=== PATIENT | female | born 1960 | race Caucasian/White ===

== ENCOUNTER 2017-06-29 01:09 | Emergency (ER) | payer SELFPAY ==
[~2017-06-29] VITALS: Ht 147.3 cm; Wt 88.0 kg
[~2017-06-29 01:09] MED LIST: AMLO5 PO; ATEN50TA PO; LISI-515 PO
[2017-06-29 01:31] VITALS: BP 173/79; PULSE 69; RESP 16; TEMP 97.8; O2SAT 99
--- NOTE | 2017-06-29 01:53 | PD ---
HPI Chief Complaint: Hypertension Time Seen by Provider: 01:36 Travel History International Travel<30 days: No Contact w/Intl Traveler<30days: No Traveled to known affect area: No History of Present Illness HPI The patient is a 56-year-old female who presents to the emergency department for dizziness and elevated blood pressure after drinking a Monster drink. The patient states she did work earlier today, took her lisinopril and metoprolol prior to work, and then drink a monster drink approximately 3 hours prior to arrival. 2 hours after drinking the monster drink the patient developed dizziness, feeling off balance, with nausea which has resolved. The patient still feels off balance and dizzy, but denies any headache, slurred speech, chest pain, shortness of breath, or focal deficits. The patient does have a history of hypertension, denies any known history of TIA or CVA. The patient denies any vertigo or room spinning sensation, simply feels "off balance ". The patient did have nausea which is currently resolved. She denies any focal weakness and denies any change in speech. Symptoms are moderate. PFSH Past Medical History Blood Disorders: No Heart Rhythm Problems: No Cancer: No Cardiac Catheterization: No Cardiovascular Problems: Yes (HTN) High Cholesterol: No Congestive Heart Failure: No Diabetes: Yes (Metformin) Patient Takes Glucophage: Yes Diminished Hearing: No Glaucoma: No Headaches: Yes Hepatitis: No Hiatal Hernia: No Hypertension: Yes Immune Disorder: No Implanted Vascular Access Dvce: No Musculoskeletal: No Psychiatric: No Reproductive: Yes ( FIBROIDS) Respiratory: No Immunizations Current: Yes Thyroid Disease: No ?: Not : 8 Para: 1 Miscarriage: 0 : 7 Past Surgical History Abdominal Surgery: Yes (APPY AT AGE 13) Appendectomy: Yes Section: Yes Coronary Artery Bypass Graft: No Gynecologic Surgery: Yes (, HYSTERECTOMY) Hysterectomy: Yes Other Surgery: Yes (ADDENOIDS REMOVED) Social History Alcohol Use: No Tobacco Use: Yes Substance Use: No Allergies-Medications (Allergen,Severity, Reaction): Coded Allergies: codeine (Unverified Allergy, Severe, SOB, 10/17/16) Reported Meds & Prescriptions Reported Meds & Active Scripts Active Norvasc (Amlodipine Besylate) 5 Mg Tab 5 Mg PO DAILY Reported Lisinopril 20 Mg Tab 20 Mg PO DAILY Atenolol 50 Mg Tab 50 Mg PO DAILY Review of Systems Except as stated in HPI: all other systems reviewed are Neg General / Constitutional: No: Fever Eyes: No: Visual changes HENT: Positive: Lightheadedness, No: Headaches, Vertigo Cardiovascular: No: Chest Pain or Discomfort Respiratory: No: Shortness of Breath Gastrointestinal: Positive: Nausea, No: Vomiting Musculoskeletal: No: Weakness Neurologic: Positive: Dizziness, No: Focal Abnormalities, Coordination Problem , Ataxia, Headache, Change in Mentation, Slurred Speech, Paresthesia, Sensory Disturbance Physical Exam Narrative GENERAL: Awake, alert, nontoxic-appearing 56-year-old female who appears her stated age and is in no acute respiratory distress. SKIN: Focused skin assessment warm/dry. HEAD: Atraumatic. Normocephalic. EYES: Pupils equal and round. Pupils are 3 mm bilateral and reactive. EOMs are intact. ENT: No nasal bleeding or discharge. Mucous membranes pink and moist. NECK: Trachea midline. No JVD. CARDIOVASCULAR: Regular rate and rhythm. No murmur appreciated. RESPIRATORY: No accessory muscle use. Clear to auscultation. Breath sounds equal bilaterally. MUSCULOSKELETAL: No obvious deformities. No clubbing. No cyanosis. No edema. NEUROLOGICAL: Awake and alert. No obvious cranial nerve deficits. Motor grossly within normal limits. Normal speech. No drift of the arms or legs. Sensation is intact on the arms, legs, and face. Finger to nose is normal. Negative station Romberg. Patient is able to ambulate with no visible ataxia. Smile is symmetric. Nonfocal on exam. PSYCHIATRIC: Appropriate mood and affect; insight and judgment normal. Data Data Last Documented VS Vital Signs Date Time Temp Pulse Resp B/P (MAP) Pulse Ox O2 Delivery O2 Flow Rate FiO2 06/29/17 01:31 97.8 69 16 173/79 (110) 99 MDM Medical Decision Making Medical Screen Exam Complete: Yes Emergency Medical Condition: Yes Medical Record Reviewed: Yes Differential Diagnosis Differential diagnosis includes caffeine side effect, hypertension, hypertensive urgency, hypertensive emergency, CVA, TIA, intracranial hemorrhage , arrhythmia, electrolyte abnormality. Narrative Course I had a discussion with the patient at bedside after performing neurologic examination regarding possibilities which include CVA, TIA, intracranial hemorrhage, arrhythmia, and caffeine toxicity/side effect, as well as hypertensive urgency/emergency. The patient initially did not want any testing performed, was worried about cost of possible test and not having insurance. I did discussion with the patient regarding possible risk and benefits of testing versus no testing and then allow the patient some time to think about her options. I did review the EMR, the patient had a cardiac catheterization in February [address] Marcos Sainz which revealed normal coronary arteries, I doubt ACS. The patient was reevaluated at 2 AM, she wanted to leave without any testing being performed. The patient is advised to return if she has any focal deficits , headache, nausea/vomiting, ataxia, difficulty ambulating, and to monitor her blood pressure. Return anytime if she would like to continue treatment. Procedures Procedure Narrative AMA: The risks of leaving against medical advice without further evaluation treatment were discussed with the patient. These risks include cardiac dysfunction, cardiac dysrhythmia, possible heart attack, possible stroke or . The patient indicated understanding of these risks and appeared to have the capacity to make this decision. Diagnosis Primary Impression: Dizziness Patient Instructions: General Instructions Additional Instructions: Return at anytime if symptoms worsen or progress. Monitor blood pressure closely. Follow-up with your primary physician. Disposition: 07 AGAINST MEDICAL ADVICE Condition: Stable Garland Mckeon MD Jun 29, 2017 01:53
[2017-06-29 01:59] VITALS: BP 162/74
== END 2017-06-29 04:46 | disposition left against medical advice (07) ==
LOC: NEPC 01:09
DX: R42 Dizziness and giddiness (principal); I10 Essential (primary) hypertension; Z72.0 Tobacco use
CPT/HCPCS: 99282